=== PATIENT | female | born 1965 | race Caucasian/White ===

== ENCOUNTER 2016-11-21 19:36 | Emergency (ER) | payer OTHER ==
[~2016-11-21] VITALS: Ht 160 cm; Wt 51.3 kg
[2016-11-21] MEDS ORDERED: PREDNISONE5 M1 PO (19:53)
[2016-11-21] MEDS ORDERED: ATORVASTATIN CA20 M1 PO (19:54)
[2016-11-21] MEDS ORDERED: TRAMADOL HCL50 M1 PO (19:54)
[2016-11-21] MEDS ORDERED: HUMIRA PEN40 MG/0.8 SC (19:54)
[2016-11-21] MEDS ORDERED: MULTI-DAY VITA1 EACH PO (19:54)
--- NOTE | 2016-11-21 20:01 | ED GI/GU/ABDOMINAL COMPLAINT ---
History of Present Illness General Chief Complaint: Abdominal Pain/Flank Pain Stated Complaint: RIGHT SIDED LOW BACK/ABD/FLANK PAIN Source: patient, family Exam Limitations: no limitations Vital Signs & Intake/Output Vital Signs & Intake/Output Vital Signs Date Time Temp Pulse Resp B/P Pulse O2 O2 Flow FiO2 Ox Delivery Rate 11/21 2132 98.0 84 16 120/64 99 Room Air 11/21 1937 98.4 101 16 142/87 99 Room Air ED Intake and Output 11/22 0000 11/21 1200 Intake Total 1000 Output Total Balance 1000 Intake, IV 1000 Patient 113 lb Weight Allergies Coded Allergies: codeine (Intermediate, VOMITING 11/21/16) Reconcile Medications Adalimumab (Humira Pen) 40 MG/0.8 ML PEN.IJ.KIT 1 SYR SC Q2W RA (Reported) Atorvastatin Calcium 20 MG TABLET 0.5 TAB PO DAILY CHOLESTEROL (Reported) Multivitamin (Multi-Day Vitamins) 1 EACH TABLET 1 TAB PO DAILY SUPPLEMENT ( Reported) Ondansetron (Zofran Odt) 4 MG TAB.RAPDIS 1 TAB SL TID PRN nausea Oxycodone HCl/Acetaminophen (Percocet 5-325 MG Tablet) 5 MG-325 MG TABLET 1 TAB PO Q4-6 PRN PAIN Prednisone 5 MG TABLET 1 TAB PO BID RA (Reported) Tamsulosin HCl (Flomax) 0.4 MG CAP.ER.24H 1 CAP PO DAILY kidney stone Tramadol HCl 50 MG TABLET 1 TAB PO PRN PAIN (Reported) Triage Note: PT TO ED C/O RIGHT SIDED INTERMITTENT LOW BACK PAIN WITH FREQUENT URINATION. ONSET THIS MORNING. RADITATING TOWARDS RIGHT LOWER ABDOMEN AND GROIN. PT STATES SHE HAS STONES IN RIGHT KIDNEY BUT HAS NEVER PASSED STONES. DENIES FEVERS/N/V/D. HASN'T TAKEN ANYTHING FOR THE PAIN TODAY Triage Nurses Notes Reviewed? yes ? n Is pt currently ? No HPI: Patient is a 51-year-old female presents complaining of right back pain radiating into her right lower abdomen. Patient began with mild right back pain this morning. Pain progressively worsening and over time started to radiate into the right lower abdomen. Symptoms are currently severe, no exacerbating or alleviating factors. Associated urgency and frequency. Patient took Eurostat this morning with no improvement, has turned her urine orange. Positive nausea. Denies dysuria, hematuria, recent injury, fevers, chills. (DOYLE JIMENEZ) Past History Travel History Traveled to [place] past 21 day No Medical History Any Pertinent Medical History? see below for history Neurological: NONE EENT: NONE Cardiovascular: NONE Respiratory: NONE Gastrointestinal: colitis Hepatic: NONE Renal: NONE Musculoskeletal: rheumatoid arthritis Psychiatric: NONE Endocrine: NONE Blood Disorders: NONE Cancer(s): NONE FREIGHT BROKER/Reproductive: NONE Surgical History Surgical History: hip surgery Psychosocial History What is your primary language Arabic Tobacco Use: Quit >30 days ago ETOH Use: occasional use Illicit Drug Use: denies illicit drug use Family History Hx Contributory? No (DOYLE JIMENEZ) Review of Systems Review of Systems Constitutional: Denies: chills, fever. EENTM: Reports: no symptoms. Respiratory: Denies: cough, short of breath. Cardiovascular: Denies: chest pain. GI: Reports: abdominal pain, nausea. Denies: diarrhea, vomiting. Genitourinary: Reports: frequency, urgency. Denies: dysuria, hematuria. Musculoskeletal: Reports: back pain. Skin: Reports: no symptoms. Neurological/Psychological: Reports: no symptoms. Hematologic/Endocrine: Reports: no symptoms. Immunologic/Allergic: Reports: no symptoms. (DOYLE JIMENEZ) Physical Exam Physical Exam General Appearance: well developed/nourished, alert, awake Head: atraumatic, normal appearance Eyes: Bilateral: normal appearance, PERRL, EOMI. Ears, Nose, Throat, Mouth: hearing grossly normal, moist mucous membrane Neck: normal inspection, supple, full range of motion Respiratory: normal breath sounds, chest non-tender, no respiratory distress, lungs clear Cardiovascular: regular rate/rhythm Gastrointestinal: normal bowel sounds, soft, mild right midabdominal tenderness. Negative De La Rosa sign, negative McBurney's point tenderness Back: normal inspection, normal range of motion, no vertebral tenderness, no CVA tenderness Extremities: normal range of motion Neurologic/Psych: no motor/sensory deficits, awake, alert, oriented x 3, normal gait, normal mood/affect Skin: intact, normal color, warm/dry Core Measures ACS in differential dx? No Severe Sepsis Present: No Septic Shock Present: No (DOYLE JIMENEZ) Progress Differential Diagnosis: cholecystitis, diverticulitis, ectopic , endometritis, gastritis, hepatitis, hernia, ischemic bowel, inflamm bowel dis, kidney stone, ovarian cyst, ovarian torsion, pancreatitis, SBO, threatened AB, UTI/pyelo Plan of Care: Orders Procedure Date/time Status Add-on Test (ER Only) 11/21 2005 Active CULTURE,URINE 11/21 2000 Active URINE 11/21 2000 Complete URINALYSIS 11/21 2000 Complete LIPASE 11/21 2000 Complete COMPREHENSIVE METABOLIC PANEL 11/21 2000 Complete CBC WITHOUT DIFFERENTIAL 11/21 2000 Complete Laboratory Tests 11/21/16 2010: Anion Gap 14, Estimated GFR > 60, BUN/Creatinine Ratio 20.0, Glucose 87, Calcium 9.8, Total Bilirubin 0.6, AST 24, ALT 27, Alkaline Phosphatase 94, Total Protein 8.8 H, Albumin 4.2, Globulin 4.6 H, Albumin/Globulin Ratio 0.9 L, Lipase 100, CBC w Diff NO MAN DIFF REQ, RBC 4.89, MCV 85.3, MCH 28.1, RDW 16.2 H, MPV 7.0 L, Gran % 51.5, Lymphocytes % 34.0, Monocytes % 13.4 H, Eosinophils % 0.8, Basophils % 0.3, Absolute Granulocytes 4.3, Absolute Lymphocytes 2.8, Absolute Monocytes 1.1 H, Absolute Eosinophils 0.1, Absolute Basophils 0, PUBS MCHC 32.9 L, Urine Color ORANG H, Urine Clarity CLEAR, Urine pH 5.0, Ur Specific [place] 1.025, Urine Protein 100 H, Urine Ketones 15 H, Urine Nitrite POS H, Urine Bilirubin NEG, Urine Urobilinogen >=8.0 H, Ur Leukocyte Esterase TRACE H, Ur Microscopic SEDIMENT EXAMINED, Urine RBC 15-25 H, Urine WBC 1-3 H, Ur Epithelial Cells FEW, Urine Hemoglobin NEG, Urine Glucose 250 H, Urine Test NEGATIVE Microbiology 11/21 2009 URINE ROUT: Urine Culture - RECD 11/21/2016 8:48:32 PM: Patient significantly improved after IV Toradol. Awaiting results of CT scan. 11/21/2016 9:30:25 PM: Results of CT scan discussed with patient and her . Pain adequately controlled with dose of IV Toradol. Patient declined further pain medication. Appears stable for discharge with close urology follow-up. (SHIRLEY CHASE,DOYLE) Diagnostic Imaging: Viewed by Me: CT Scan. Discussed w/RAD: CT Scan. Radiology Impression: PATIENT: TORSTEN MORA PRESENT AGE: 51 PATIENT ACCOUNT NO: [id number] : 67 LOCATION: [facility] ORDERING PHYSICIAN: DOYLE CHASE SERVICE DATE: 11/21/16 EXAM TYPE: CAT - CT ABD & PELVIS W/O IV CONTRAS EXAMINATION: CT ABDOMEN AND PELVIS WITHOUT CONTRAST CLINICAL INFORMATION: A 51-year-old female with right back pain radiating to the abdomen. COMPARISON: Renal ultrasound done on 10/20/2012. TECHNIQUE: Multidetector volumetric imaging was performed from the superior aspect of the liver through the pubic symphysis. Sagittal and coronal reformatted images were obtained on the technologist's workstation. DLP: 250.42 mGy-cm. FINDINGS: LUNG BASES: The visualized lung bases are unremarkable. LIVER, GALLBLADDER, AND BILIARY TREE: The liver is normal in size, shape, and attenuation. No focal hepatic lesion or biliary ductal dilatation is present. The gallbladder is unremarkable with no evidence of radiopaque gallstones, gallbladder wall thickening, or obvious pericholecystic inflammatory changes. PANCREAS: Unremarkable. SPLEEN: Unremarkable. ADRENAL GLANDS: Unremarkable. KIDNEYS AND URETERS: There are multiple right renal nonobstructing calculi present, the smallest measures approximately millimeters, seen at the superior calyx. The largest seen at inferior anterior calyx, appears clusters of tiny calculi, oriented in a linear fashion, measures 0.8 cm. The second smaller is seen at mid posterior calyx, measures 0.4 cm. Another tiny 0.2 cm calculus is noted at mid lateral calyx. Moderate right-sided hydroureteronephrosis is present with a nonobstructing calculus seen at the right ureterovesicular junction measuring approximately 0.5 cm. In addition, there is a second slightly proximal to the obstructing calculus is also noted within the distal part of the right ureter measuring approximately 0.4 cm (see the goodrich images). The left kidney, left renal collecting system including the left ureter appears normal. Specifically, no calculus is identified within the left kidney, ureter. BLADDER: Suboptimally distended, grossly appear unremarkable. GASTROINTESTINAL TRACT: Small sliding hiatal hernia is noted. The small, large bowel loops are decompressed. The appendix is visualized and appear unremarkable. Colonic diverticulosis is noted within the sigmoid colon without any CT features of superimposed acute diverticulitis. ABDOMINAL WALL: No significant hernia is appreciated. LYMPH NODES: Normal. VASCULAR: Unremarkable. PELVIC VISCERA: Left adnexa 2 cm hypodensity present likely represent an enlarged follicle. The uterus appear unremarkable. There is no right-sided adnexal mass visualized. There is no free fluid and/or free air present. OSSEOUS STRUCTURES: No suspicious lytic or sclerotic abnormality is present. Visualized part of the left hip prosthesis and intramedullary nupur within the visualized proximal shaft of the right femur appear intact. IMPRESSION: 1. Moderate right-sided hydroureteronephrosis secondary to an obstructing 0.5 cm calculus seen at the right ureterovesicular junction. Note is also made of another 0.4 cm nonobstructing right distal ureteric calculus and multiple nonobstructing right renal calculi. 2. The left kidney, the left renal collecting system including the left ureter appear unremarkable. 3. Small sliding hiatal hernia and colonic diverticulosis without any CT features of superimposed acute diverticulitis. 4. Left adnexal 2 cm hypodensity likely represent enlarged follicle-containing otherwise normal-appearing left ovary. DICTATED BY: YESENIA DEXTER MD DATE/TIME DICTATED:11/21/162040 LOOPING INSPECTOR:JOSH DATE/TIME TRANSCRIBED:2040 CONFIDENTIAL, DO NOT COPY WITHOUT APPROPRIATE AUTHORIZATION. < Electronically signed in Other Vendor System> SIGNED BY: YESENIA DEXTER MD 11/21/162115 Initial ED EKG: none (DOYLE JIMENEZ) Departure Departure Time of Disposition: 2127 Disposition: HOME OR SELF CARE Condition: Stable Clinical Impression Primary Impression: Renal colic on right side Referrals: BETTE HERNANDEZ,DANYEL Haynes (PCP/Family) SHRUTHI RESENDIZ MD Additional Instructions: Drink plenty of fluids. Urinate through the strainer. If and when you collect the kidney stones bring him to the urologist for further evaluation. Call Dr. Resendiz tomorrow for appointment for further evaluation. Return to emergency department if fevers, unable stay hydrated, pain uncontrollable, or worsening of symptoms. Departure Forms: Customer Survey General Discharge Information Prescriptions: Current Visit Scripts Tamsulosin HCl (Flomax) 1 CAP PO DAILY #10 CAP Oxycodone HCl/Acetaminophen (Percocet 5-325 MG Tablet) 1 TAB PO Q4-6 PRN PAIN #15 TAB Ondansetron (Zofran Odt) 1 TAB SL TID PRN nausea #10 TAB (SHIRLEY CHASE,DOYLE) PA/FOOD PROCESSING PLANT MANAGER Co-Sign Statement Statement: ED Attending supervision documentation- [] I saw and evaluated the patient. I have also reviewed all the pertinent lab results and diagnostic results. I agree with the findings and the plan of care as documented in the PA's/FOOD PROCESSING PLANT MANAGER's documentation. [X] I have reviewed the ED Record and agree with the PA's/FOOD PROCESSING PLANT MANAGER's documentation. [] Additions or exceptions (if any) to the PAs/FOOD PROCESSING PLANT MANAGER's note and plan are summarized below: [] (OTILIA HERNANDEZ,BIN Benedict)
[2016-11-21 20:25] LABS: ABSOLUTE BASOPHIL COUNT 0 /CUMM (0.0-0.2); ABSOLUTE EOSINOPHIL COUNT 0.1 /CUMM (0.0-0.7); ABSOLUTE GRANULOCYTE CT 4.3 /CUMM (1.4-6.5); ABSOLUTE LYMPH COUNT 2.8 /CUMM (1.2-3.4); ABSOLUTE MONOCYTE COUNT 1.1 /CUMM (0.10-0.60); BASOPHIL % 0.3 % (0.0-2.0); EOSINOPHIL % 0.8 % (0-5); GRANULOCYTE % 51.5 % (42.2-75.2); HEMATOCRIT 41.8 % (37-47); MEAN CORPUSCULAR HGB 28.1 PG (27.0-31.0); MEAN CORPUSCULAR HGB CONC 32.9 G/DL (33.0-37.0); MEAN CORPUSCULAR VOLUME 85.3 FL (81.0-99.0); PLATELET COUNT 543 /CUMM (130-400); RBC DISTRIBUTION WIDTH 16.2 % (11.5-14.5); RED BLOOD CELL CT 4.89 /CUMM (4.20-5.40); WHITE BLOOD CELL COUNT 8.4 /CUMM (4.8-10.8)
--- NOTE | 2016-11-21 21:16 | CT SCAN REPORT ---
EXAMINATION: CT ABDOMEN AND PELVIS WITHOUT CONTRAST CLINICAL INFORMATION: A 51-year-old female with right back pain radiating to the abdomen. COMPARISON: Renal ultrasound done on 10/20/2012. TECHNIQUE: Multidetector volumetric imaging was performed from the superior aspect of the liver through the pubic symphysis. Sagittal and coronal reformatted images were obtained on the technologist's workstation. DLP: 250.42 mGy-cm. FINDINGS: LUNG BASES: The visualized lung bases are unremarkable. LIVER, GALLBLADDER, AND BILIARY TREE: The liver is normal in size, shape, and attenuation. No focal hepatic lesion or biliary ductal dilatation is present. The gallbladder is unremarkable with no evidence of radiopaque gallstones, gallbladder wall thickening, or obvious pericholecystic inflammatory changes. PANCREAS: Unremarkable. SPLEEN: Unremarkable. ADRENAL GLANDS: Unremarkable. KIDNEYS AND URETERS: There are multiple right renal nonobstructing calculi present, the smallest measures approximately millimeters, seen at the superior calyx. The largest seen at inferior anterior calyx, appears clusters of tiny calculi, oriented in a linear fashion, measures 0.8 cm. The second smaller is seen at mid posterior calyx, measures 0.4 cm. Another tiny 0.2 cm calculus is noted at mid lateral calyx. Moderate right-sided hydroureteronephrosis is present with a nonobstructing calculus seen at the right ureterovesicular junction measuring approximately 0.5 cm. In addition, there is a second slightly proximal to the obstructing calculus is also noted within the distal part of the right ureter measuring approximately 0.4 cm (see the goodrich images). The left kidney, left renal collecting system including the left ureter appears normal. Specifically, no calculus is identified within the left kidney, ureter. BLADDER: Suboptimally distended, grossly appear unremarkable. GASTROINTESTINAL TRACT: Small sliding hiatal hernia is noted. The small, large bowel loops are decompressed. The appendix is visualized and appear unremarkable. Colonic diverticulosis is noted within the sigmoid colon without any CT features of superimposed acute diverticulitis. ABDOMINAL WALL: No significant hernia is appreciated. LYMPH NODES: Normal. VASCULAR: Unremarkable. PELVIC VISCERA: Left adnexa 2 cm hypodensity present likely represent an enlarged follicle. The uterus appear unremarkable. There is no right-sided adnexal mass visualized. There is no free fluid and/or free air present. OSSEOUS STRUCTURES: No suspicious lytic or sclerotic abnormality is present. Visualized part of the left hip prosthesis and intramedullary nupur within the visualized proximal shaft of the right femur appear intact. IMPRESSION: 1. Moderate right-sided hydroureteronephrosis secondary to an obstructing 0.5 cm calculus seen at the right ureterovesicular junction. Note is also made of another 0.4 cm nonobstructing right distal ureteric calculus and multiple nonobstructing right renal calculi. 2. The left kidney, the left renal collecting system including the left ureter appear unremarkable. 3. Small sliding hiatal hernia and colonic diverticulosis without any CT features of superimposed acute diverticulitis. 4. Left adnexal 2 cm hypodensity likely represent enlarged follicle-containing otherwise normal-appearing left ovary.
[2016-11-21] MEDS ORDERED: FLOMAX0.4 M1 PO (21:27)
[2016-11-21] MEDS ORDERED: ZOFRAN ODT4 M1 SL (21:27)
[2016-11-21] MEDS ORDERED: PERCOCET 5-3251 EACH PO (21:27)
[2016-11-21 21:33] VITALS: BP 120/64
== END 2016-11-21 21:34 ==
LOC: ERH 19:36
PROVIDERS: Physician Assistant
DX: N23 Unspecified renal colic (principal); R39.15 Urgency of urination
CPT/HCPCS: 74176; 81001; 81025; 87086; 96374; 96375; J1885; J2405

== ENCOUNTER → 2016-12-28 | Day surgery (SDC) | payer OTHER ==
[~2016-12-28] VITALS: Ht 160 cm; Wt 52.2 kg
[~2016-12-28] MED LIST: ATORVASTATIN CA20 M1 PO; FLOMAX0.4 M1 PO; HUMIRA PEN40 MG/0.8 SC; MULTI-DAY VITA1 EACH PO; PERCOCET 5-3251 EACH PO; PREDNISONE5 M1 PO; TRAMADOL HCL50 M1 PO; ZOFRAN ODT4 M1 SL
--- NOTE | 2016-12-28 14:44 | Operative Report ---
Operative/Inv Procedure Report Surgery Date: 12/28/16 Name of Procedure: right ureter ESWL. fluoroscopy Pre-Operative Diagnosis: right ureter 8mm stone with hydro. Post-Operative Diagnosis: same Estimated Blood Loss: none Surgeon/Bilingual School Psychologist: SHRUTHI BREWSTER MD Anesthesia: moderate sedation Specimens: none Complications: none Operative/Procedure Note Note: The patient was taken to the operating room and placed on the ESWL table in supine position. With the patient awake, timeout was performed to cofirm correct identity, procedure, laterality, anesth., and other pertinent crystal- operative information. The patient's RIGHT flank was placed over the table cut -out, overlying the dome of the shockwave generator. C-arm fluroscopy, as well as renal US, was used to locate the stone, and evaluate the RIGHT kidney. The stone was clearly visible on fluoroscopy at the distal right ureter, measuring approximately 8 mm stone burden. Renal US confimred mild hydronephrosis, and one additional 6 mm stone at MPd, no tumor, seen in the right kidney. After adequate anesthesia, the right ureter stone's position was optimized for Shockwave lithotrypsy using fluoroscopy, in AP and oblique views. The E.S.W.L. was initiated at low power levels x 200 shocks. After noting the patient's tolerance to the shockwaves, the shock wave power level was quickly maximized. Toward the end of the procedure, the composition of the stone had changed significantly indicating the pulverization of the ureter stone. A total of 3000 shockwaves were delivered to the stone in order to achieve adequate lithotrypsy. The patient tolerated both the procedure well, was awakened, and taken to recovery in satisfactory condition via stretcher. The pt will be dischared home with pain meds, diet orders, and intructions to catch fragments with straining the urine. The patient is to have follow-up renal ultrasound and KUB in 1-2 weeks, prior to follow-up visit in my office. Discharge Disposition: Same Day Admissions CC: SHRUTHI BREWSTER MD
== END ==
LOC: STS 03:10
DX: N13.2 Hydronephrosis with renal and ureteral calculous obstruction (principal); M06.9 Rheumatoid arthritis, unspecified; K52.9 Noninfective gastroenteritis and colitis, unspecified
CPT/HCPCS: 81025